=== PATIENT | male | born 1960 | race Caucasian/White ===

== ENCOUNTER 2016-05-19 10:50 | Emergency (ER) | payer OTHER ==
[~2016-05-19] VITALS: Ht 170.2 cm; Wt 95.0 kg
[2016-05-19 10:52] VITALS: BP 152/84; PULSE 76; RESP 20; TEMP 97.7; O2SAT 95
--- NOTE | 2016-05-19 11:19 | PD ---
HPI Chief Complaint: Exposure to Blood/Body Fluids Time Seen by Provider: 11:13 Travel History International Travel<30 days: No Contact w/Intl Traveler<30days: No Traveled to known affect area: No History of Present Illness HPI Patient is a 56-year-old male presenting to the emergency department for evaluation of an exposure to blood and body fluids. 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 He reached in cutting his hand on a bone cutter. Patient has no other complaints at this time. FORMERLY [facility] Past Medical History Medical History: Denies Significant Hx Kidney Stones: Yes Past Surgical History Abdominal Surgery: Yes (L LINGUINAL) Genitourinary Surgery: Yes (R URETAL STENT) Social History Alcohol Use: No Tobacco Use: No Substance Use: No Allergies-Medications (Allergen,Severity, Reaction): Coded Allergies: No Known Allergies (Unverified , 01/30/15) Reported Meds & Prescriptions Reported Meds & Active Scripts Active No Active Prescriptions or Reported Medications Review of Systems Except as stated in HPI: all other systems reviewed are Neg Skin: Positive Other (abrasion to right hand, palmar aspect) Physical Exam Narrative GENERAL: Well-nourished, well-developed patient. SKIN: Warm and dry. 0.5 cm superficial abrasion to the palmar aspect of the right hand. No active bleeding, no erythema, no induration. HEAD: Normocephalic. EYES: No scleral icterus. No injection or drainage. NECK: Supple, trachea midline. No JVD or lymphadenopathy. CARDIOVASCULAR: Regular rate and rhythm without murmurs, gallops, or rubs. RESPIRATORY: Breath sounds equal bilaterally. No accessory muscle use. GASTROINTESTINAL: Abdomen soft, non-tender, nondistended. MUSCULOSKELETAL: No cyanosis, or edema. BACK: Nontender without obvious deformity. No CVA tenderness. Data Data Last Documented VS Vital Signs Date Time Temp Pulse Resp B/P Pulse Ox O2 Delivery O2 Flow Rate FiO2 05/19/16 10:52 97.7 76 20 152/84 95 Room Air MDM Medical Decision Making Medical Screen Exam Complete: Yes Emergency Medical Condition: Yes Interpretation(s) Vital Signs Date Time Temp Pulse Resp B/P Pulse Ox O2 Delivery O2 Flow Rate FiO2 05/19/16 10:52 97.7 76 20 152/84 95 Room Air Differential Diagnosis Exposure versus laceration versus abrasion versus puncture wound versus cellulitis versus other Narrative Course Patient is a 56 year old male presenting to the emergency department after exposure to blood and/or body fluids. Patient has a 0.5 cm superficial abrasion to the palmar aspect of the right hand. Source patient is being tested. Patient will hold off on antivirals until results from the source patient are obtained. Patient was encouraged to follow-up with employee medicine return to emergency department for any new or worsening symptoms. Diagnosis Primary Impression: Exposure to blood or body fluid Referrals: Employ [employer] Patient Instructions: Postexposure Prophylaxis (ED), General Instructions Additional Instructions: Follow-up with employee med Returned to the emergency department for any new or worsening symptoms Med/Other Pt SpecificInfo: No Change to Meds Scripts No Active Prescriptions or Reported Meds Disposition: 01 DISCHARGE HOME Condition: Stable Lillian Munson May 19, 2016 11:19
== END 2016-05-19 11:51 | disposition home or self-care (01) ==
LOC: NEPB 10:50
DX: S60.511A Abrasion of right hand, initial encounter (principal); W27.8XXA Contact with other nonpowered hand tool, initial encounter; Y93.89 Activity, other specified; Y92.234 Operating room of hospital as the place of occurrence of the external cause; Y99.0 Civilian activity done for income or pay
CPT/HCPCS: 99283

== ENCOUNTER 2016-07-09 08:49 | Emergency (ER) | payer OTHER ==
[~2016-07-09] VITALS: Ht 170.2 cm; Wt 100.0 kg
[2016-07-09 08:52] VITALS: BP 150/75; PULSE 70; RESP 20; TEMP 97.4; O2SAT 98
[2016-07-09] MEDS ORDERED: SODIUM CHLORIDE 0.9% FLUSH 10 ML FLUSH IV FLUSH PRN (09:45)
[2016-07-09] MEDS ORDERED: ASPI1TAB69 PO (10:05)
[2016-07-09 10:10] VITALS: RESP 17; O2SAT 99
[2016-07-09 10:33] LABS: BASOPHIL % 0.5 % (0.0-2.0); EOSINOPHIL % 0.5 % (0.0-4.0); HEMATOCRIT 47.5 % (39.0-51.0); HEMO FLAGS DIFF FINAL; LYMPH % 20.5 % (9.0-44.0); LYMPHOCYTE # 1.4 TH/MM3 (1.0-4.8); MEAN CELL VOLUME 84.3 FL (80.0-100.0); MEAN CORPUSCULAR HEMOGLOBIN 27.6 PG (27.0-34.0); MEAN CORPUSCULAR HGB CONC 32.8 % (32.0-36.0); MONO % 4.8 % (0.0-8.0); NEUT % 73.7 % (16.0-70.0); PLATELET COUNT 192 TH/MM3 (150-450); RED BLOOD COUNT 5.64 MIL/MM3 (4.50-5.90); RED CELL DISTRIBUTION WIDTH 14.2 % (11.6-17.2); WHITE BLOOD COUNT 6.8 TH/MM3 (4.0-11.0)
--- NOTE | 2016-07-09 10:35 | PD ---
HPI Chief Complaint: Flank/Kidney Pain Time Seen by Provider: 09:41 Travel History International Travel<30 days: No Contact w/Intl Traveler<30days: No Traveled to known affect area: No History of Present Illness HPI This is a 56-year-old male who presents to the emergency department with left- sided abdominal pain, moderate severity, intermittent, associated with sharp stabbing pains, with no fevers, chills or vomiting. He has a history of kidney stones but they've only ever affected his right side, not his left. He has required stents on the right side in the past. PFSH Past Medical History Diminished Hearing: No Genitourinary: Yes Kidney Stones: Yes Tetanus Vaccination: < 5 Years Influenza Vaccination: Yes Past Surgical History Abdominal Surgery: Yes (L LINGUINAL) Genitourinary Surgery: Yes (R URETAL STENT) Social History Alcohol Use: Yes (ocassionally) Tobacco Use: No Substance Use: No Allergies-Medications (Allergen,Severity, Reaction): Coded Allergies: No Known Allergies (Unverified , 07/09/16) Reported Meds & Prescriptions Reported Meds & Active Scripts Active Reported Aspirin 81 Mg Tabdr 81 Mg PO DAILY Review of Systems Except as stated in HPI: all other systems reviewed are Neg Physical Exam Narrative GENERAL:Well appearing, no acute distress SKIN: Focused skin assessment warm and dry. HEAD: Atraumatic. Normocephalic. EYES: Pupils equal and round. No injection or drainage. ENT: Moist mucous membranes NECK: Trachea midline. CARDIOVASCULAR: Regular rate and rhythm. No murmur appreciated. RESPIRATORY: Clear to auscultation. Breath sounds equal bilaterally. GASTROINTESTINAL: Abdomen soft, mildly tender to palpation in the left mid abdomen with no rebound or guarding. MUSCULOSKELETAL: No obvious deformities. NEUROLOGICAL: Awake and alert. No obvious cranial nerve deficits. Moving all extremities. PSYCHIATRIC: Appropriate mood and affect; insight and judgment normal. Data Data Last Documented VS Vital Signs Date Time Temp Pulse Resp B/P Pulse Ox O2 Delivery O2 Flow Rate FiO2 07/09/16 10:10 17 99 Room Air 07/09/16 10:07 78 07/09/16 08:52 97.4 150/75 Orders Complete Blood Count With Diff (07/09/16 09:45) Comprehensive Metabolic Panel (07/09/16 09:45) Urinalysis - C+S If Indicated (07/09/16 09:45) Ct Abd/Pel W/O Iv Contrast (07/09/16 09:45) Iv Access Insert/Monitor (07/09/16 09:45) Ecg Monitoring (07/09/16 09:45) Oximetry (07/09/16 09:45) Sodium Chloride 0.9% Flush (Ns Flush) (07/09/16 09:45) Labs Laboratory Tests Test 07/09/16 10:00 White Blood Count 6.8 TH/MM3 Red Blood Count 5.64 MIL/MM3 Hemoglobin 15.6 GM/DL Hematocrit 47.5 % Mean Corpuscular Volume 84.3 FL Mean Corpuscular Hemoglobin 27.6 PG Mean Corpuscular Hemoglobin 32.8 % Concent Red Cell Distribution Width 14.2 % Platelet Count 192 TH/MM3 Mean Platelet Volume 7.3 FL Neutrophils (%) (Auto) 73.7 % Lymphocytes (%) (Auto) 20.5 % Monocytes (%) (Auto) 4.8 % Eosinophils (%) (Auto) 0.5 % Basophils (%) (Auto) 0.5 % Neutrophils # (Auto) 5.0 TH/MM3 Lymphocytes # (Auto) 1.4 TH/MM3 Monocytes # (Auto) 0.3 TH/MM3 Eosinophils # (Auto) 0.0 TH/MM3 Basophils # (Auto) 0.0 TH/MM3 CBC Comment DIFF FINAL Differential Comment Urine Color YELLOW Urine Turbidity CLEAR Urine pH 6.5 Urine Specific [place] 1.023 Urine Protein TRACE mg/dL Urine Glucose (UA) NEG mg/dL Urine Ketones NEG mg/dL Urine Occult Blood MOD Urine Nitrite NEG Urine Bilirubin NEG Urine Urobilinogen LESS THAN 2.0 MG/DL Urine Leukocyte Esterase NEG Urine RBC 44 /hpf Urine WBC 2 /hpf Urine Squamous Epithelial <1 /hpf Cells Urine Mucus FEW /lpf Microscopic Urinalysis Comment CULT NOT INDICATED Sodium Level 143 MEQ/L Potassium Level 4.7 MEQ/L Chloride Level 109 MEQ/L Carbon Dioxide Level 29.3 MEQ/L Anion Gap 5 MEQ/L Blood Urea Nitrogen 24 MG/DL Creatinine 1.09 MG/DL Estimat Glomerular Filtration 70 ML/MIN Rate Random Glucose 153 MG/DL Calcium Level 9.0 MG/DL Total Bilirubin 1.1 MG/DL Aspartate Amino Transf 16 U/L (AST/SGOT) Alanine Aminotransferase 32 U/L (ALT/SGPT) Alkaline Phosphatase 85 U/L Total Protein 6.9 GM/DL Albumin 3.7 GM/DL MDM Medical Decision Making Medical Screen Exam Complete: Yes Emergency Medical Condition: Yes Interpretation(s) Afebrile, no tachycardia, hypertensive No leukocytosis Electrolytes within normal limits Urinalysis: No infection CT: right distal ureteral calculus measuring 4.8mm and left uvj calculus measuring 2.2 mm Differential Diagnosis Nephrolithiasis, pyelonephritis, diverticulitis Narrative Course This is a 56-year-old male who presents to the emergency department with left- sided abdominal pain. He has a long history of kidney stones. An IV was established and labs are obtained which were reassuring. CT demonstrates bilateral kidney stones, a 4.8 mm stone at the distal right ureter and a 2 mm stone at the left UVJ which is likely causing his symptoms. He is very well- appearing and I think appropriate for outpatient therapy. Patient was discharged home. Diagnosis Primary Impression: Kidney stones Referrals: Hansel Umanzor MD Patient Instructions: General Instructions Additional Instructions: If you develop severe pain, inability to eat or drink, or fever return to the emergency department. Use a strainer to try to catch your stone. Take Lortab as needed for pain, and continue taking zofran as needed for nausea. Follow up with urology as soon as possible. Med/Other Pt SpecificInfo: Prescription(s) given Scripts Ondansetron Odt (Zofran Odt)4 Mg Tab4 Mg SL Q6HR PRN (Nausea/Vomiting) #14 TAB Ref 0 Prov:Marianne Velasquez MD 07/09/16 Hydrocodone-Acetaminophen (Lortab)5-325 Mg Tab1-2 Tab PO Q6H PRN (PAIN) #10 TAB Ref 0 Prov:Marianne Velasquez MD 07/09/16 Disposition: 01 DISCHARGE HOME Condition: Stable Marianne Velasquez MD Jul 09, 2016 10:34
[2016-07-09 10:41] LABS: ALT (GPT) 32 U/L (12-78); ANION GAP 5 MEQ/L (5-15); AST (GOT) 16 U/L (15-37); BICARBONATE 29.3 MEQ/L (21.0-32.0); BLOOD UREA NITROGEN 24 MG/DL (7-18); CHLORIDE 109 MEQ/L (98-107); GLOMERULAR FILTRATION RATE 70 ML/MIN (>89); POTASSIUM 4.7 MEQ/L (3.5-5.1); SODIUM (NA) 143 MEQ/L (136-145)
[2016-07-09 10:44] LABS: ALKALINE PHOSPHATASE 85 U/L (45-117); BLOOD, URINE MOD (NEG); COMMENT (UR) CULT NOT INDICATED; CULTURE IF INDICATED CULT NOT INDICATED; GLUCOSE,URINE NEG (NEG); KETONE, URINE NEG (NEG); MUCUS URINE FEW /lpf (OCC); NITRITE,URINE NEG (NEG); PH, URINE 6.5 (5.0-8.5); SQUAMOUS EPITHELIAL CELL URINE <1 /hpf (0-5); TOTAL BILIRUBIN ADULT 1.1 MG/DL (0.2-1.0); URINE COLOR YELLOW (YELLW/STRAW)
--- NOTE | 2016-07-09 10:44 | RADRPT ---
EXAM DATE/TIME: 07/09/2016 10:26 [place] COMPARISON: No previous studies available for comparison. INDICATIONS : Left flank pain. ORAL CONTRAST: No oral contrast ingested. RADIATION DOSE: 8.54 CTDIvol (mGy) MEDICAL HISTORY : None SURGICAL HISTORY : Right ureteral stent. ENCOUNTER: Initial ACUITY: 1 day PAIN SCALE: 3/10 LOCATION: Right Abdomen TECHNIQUE: Volumetric scanning of the abdomen and pelvis was performed. Using automated exposure control and ad justment of the mA and/or kV according to patient size, radiation dose was kept as low as reasonably achievable to obtain optimal diagnostic quality images. FINDINGS: Liver, gallbladder, spleen, pancreas, adrenal glands, stomach unremarkable. Left midpole renal cyst m easuring 2.3 cm. 3 mm right mid pole renal calculus, nonobstructing. There is a tiny calculus at the left ureterovesical junction measuring 2.2 mm. There is a calculus at the right distal ureter just pr oximal to the ureterovesical junction measuring 4.8 mm. Prostatic calcifications are noted. No eviden ce of hydronephrosis or hydroureter. Small and large bowel are unremarkable. Lung bases are clear. De generative changes of the spine are noted. CONCLUSION: 1. Nonobstructing right renal calculus. 2. Left renal cyst. 3. Right distal ureteral calculus just proximal to the ureterovesical junction. 4. Left UVJ calculus. Ovi Fitzgerald MD on July 09, 2016 at 10:40 Board Certified Radiologist. This report was verified electronically.
[2016-07-09] MEDS ORDERED: HYDR-3533 PO (10:57)
[2016-07-09] MEDS ORDERED: ZOFR4TAB3 SL (10:57)
[2016-07-09] MEDS ORDERED: MORPHINE SULFATE 4 MG/ML INJ IV PUSH ONE (11:15)
[2016-07-09] MEDS ORDERED: KETOROLAC TROMETHAMINE 30 MG/ML (IVP) VIAL IV PUSH ONE (11:15)
[2016-07-09 12:04] VITALS: BP 130/71; TEMP 97.8
[2016-07-09 12:06] VITALS: RESP 16
== END 2016-07-09 12:04 | disposition home or self-care (01) ==
LOC: NEPD 08:49
DX: N20.0 Calculus of kidney (principal)
CPT/HCPCS: 74176; 80053; 81001; 85025; 96374; 96375; 99284; J1885; J2270